=== PATIENT | female | born 1940 | race Caucasian/White ===

== ENCOUNTER 2017-02-05 19:30 | Emergency (ER) | payer OTHER, BC ==
[2017-02-05 19:35] VITALS: BP 144/71; PULSE 83; TEMP 98.1; BMI 20.1
--- NOTE | 2017-02-05 19:36 | PDOC ---
History of Present Illness - History of Present Illness Initial Comments: 02/05/17 19:45. The patient is a 76 year old female with a past medical history of dementia presents to the emergency department with complaints of right ankle pain and right wrist pain after a mechanical fall down some stairs. Denies loss of consciousness or head trauma. When the patient fell, she states she landed on her right out stretched arm. Patient's right wrist is painful with range of motion. Denies numbness or tingling in the right hand. Denies right elbow pain or shoulder pain. Denies neck pain or back pain. Patient also reports sustaining injury to her right ankle. Patient reports pain with weight bearing and range of motion in her right ankle. Denies numbness or tingling in the right foot. Denies any other joint pains in the right lower extremity. Denies hip pain or pelvis pain. PAST MEDICAL HISTORY: dementia PAST SURGICAL HISTORY: no significant history FAMILY HISTORY: no pertinant history SOCIAL HISTORY: Pt lives with family MEDICATIONS: reviewed ALLERGIES: As per nursing notes ROS General: No fevers or chills, no weakness, no weight loss HEENT: No change in vision. No sore throat,. No ear pain CardioVascular: No chest pain or shortness of breath Respiratory:No cough, or wheezing. Gastrointestinal: no nausea, vomitting, diarrhea or constipation, No rectal bleeding Genitourinary: No dysuria, hematuria, or frequency Musculoskeletal: Yes Right Ankle pain Yes Right Wrist pain Neurologic: No headache, vertigo, dizziness or loss of consciousness Psychiatric: no depression Skin: No rashes or easy bruising Endocrine: no increased thirst or abnormal weight change Allergic: no skin or latex allergy All other systems reviewed and normal Exam GENERAL: The patient is awake, alert, and fully oriented, in no acute distress. HEAD: Normal with no signs of trauma. EYES: Pupils equal, round and reactive to light, extraocular movements intact, sclera anicteric, conjunctiva clear. EXTREMITIES: Right Ankle: no swelling or ecchymosis of ankle or foot. Mild tenderness to palpation anterior ankle. No tender to palpation of the lateral malleolus or base of the 5th Metatarsal. Neurovascular intact Right wrist: There is ecchymosis and swelling of the right wrist with question deformity. Neurovascular intact Remainder of the extremities show normal range of motion, no edema. NEUROLOGICAL: Normal speech PSYCH: Normal mood, normal affect. SKIN: Refer to extremities portion of exam, otherwise warm, Dry, normal turgor, no rashes or lesions noted. <Luis Gaxiola - Last Filed: 02/05/17 19:56> - General History Source: Patient Exam Limitations: No Limitations - History of Present Illness Initial Comments: 02/05/17 20:53 A portion of this note was documented by scribe services under my direction. I have reviewed the details of the note, within reason, and agree with the documentation. The case summary and management plan written by me. 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 Patient fell landing on her outstretched hand and twisted her foot and ankle. Patient x-ray was negative for any acute pathology of her foot or ankle however there is a distal radius fracture with deformity. Patient put in a splint of her wrist and will follow-up with the orthopedist tomorrow. Patient discharged home with her family. Patient does live in an assisted- living facility [facility] Patient referred to Dr. Love for orthopedics <Vivienne Munoz I - Last Filed: 02/05/17 20:58> - General Chief Complaint: Injury Stated Complaint: RT WRIST, RT ANKLE PAIN Time Seen by Provider: 02/05/17 19:35 Past History <Luis Gaxiola - Last Filed: 02/05/17 19:56> - Past Medical History Dementia: Yes - Psycho/Social/Smoking Cessation Hx Suicidal Ideation: No Smoking History: Never smoked Hx Alcohol Use: (social) <Vivienne Munoz I - Last Filed: 02/05/17 20:58> - Past Medical History Allergies/Adverse Reactions: Allergies Allergy/AdvReac Type Severity Reaction Status Date / Time No Known Allergies Allergy Verified 02/05/17 19:31 Home Medications: Ambulatory Orders Rivastigmine [Exelon] 1 each TD ASDIR 02/05/17 *Physical Exam - Vital Signs Last Vital Signs Temp Pulse Resp BP Pulse Ox 98.1 F 83 18 144/71 98 02/05/17 19:30 02/05/17 19:30 02/05/17 19:30 02/05/17 19:30 02/05/17 19:30 <Luis Gaxiola - Last Filed: 02/05/17 19:56> - Vital Signs Last Vital Signs Temp Pulse Resp BP Pulse Ox 98.1 F 83 18 144/71 98 02/05/17 19:30 02/05/17 19:30 02/05/17 19:30 02/05/17 19:30 02/05/17 19:30 <Vivienne Munoz I - Last Filed: 02/05/17 20:58> *DC/Admit/Observation/Transfer - Attestations Scribe Attestion: 02/05/17 19:46 Documentation prepared by Luis Gaxiola, acting as medical transport specialist for Vivienne Munoz MD <Luis Gaxiola - Last Filed: 02/05/17 19:56> - Discharge Dispostion Admit: No <Vivienne Munoz I - Last Filed: 02/05/17 20:58> Diagnosis at time of Disposition: Ankle sprain Wrist fracture Qualifiers: Encounter type: initial encounter Fracture type: closed Laterality: right Qualified Code(s): S62.101A - Fracture of unspecified carpal bone, right wrist, initial encounter for closed fracture - Discharge Dispostion Disposition: HOME Condition at time of disposition: Stable - Patient Instructions Additional Instructions: Elevate the wrist as much as possible. Tylenol or Motrin as needed for pain. Wear the wrist splint and to see the orthopedist tomorrow. Follow-up with Dr. Love if you need an orthopedist call his office at [phone] for an appointment tomorrow. You can weight-bear as tolerated on your right ankle and foot, if you're still unable to bear weight on your right foot and ankle have Dr. Lvoe or your orthopedist reevaluated tomorrow as well, Return to the emergency department immediately with ANY new, persistent or worsening symptoms. Continue any medications as previously prescribed by your physician. You should follow up with your primary doctor as soon as possible regarding today's emergency department visit. . Please make sure your doctor reviews the results of your emergency evaluation. Thank you for coming to the Emergency Department today for your care. It was a pleasure to see you today. Please note that your evaluation is INCOMPLETE until you follow-up with your doctor.
[2017-02-05] MEDS ORDERED: ACETAMINOPHEN 500 MG TABLET (FP) PO ONE (19:48)
[2017-02-05] MEDS ORDERED: ACETAMINOPHEN 325 MG TABLET (FP) ONE (20:21)
== END 2017-02-05 21:04 | disposition home or self-care (01) ==
LOC: FER 19:30
PROC: 2W3EX1Z Immobilization of Right Hand using Splint (ICD-10-PCS; principal; 2017-02-05)
DX: S62.101A Fracture of unspecified carpal bone, right wrist, initial encounter for closed fracture (principal); S93.401A Sprain of unspecified ligament of right ankle, initial encounter; W10.9XXA Fall (on) (from) unspecified stairs and steps, initial encounter; Y93.89 Activity, other specified; Y92.9 Unspecified place or not applicable
CPT/HCPCS: 73110-TC-RT; 73130-TC-RT; 73610-TC-RT; 73630-TC-RT; 99283-25

== ENCOUNTER 2020-07-02 15:47 | Inpatient (IN) | payer OTHER, BC ==
--- NOTE | 2020-07-02 16:25 | PDOC ---
History of Present Illness - General Chief Complaint: Decubitus Ulcer Stated Complaint: WOUND CARE Time Seen by Provider: 07/02/20 16:24 - History of Present Illness Initial Comments: 79 YOF h/o dementia and psychosis presents for sacral decubitus ulcer of unknown duration. Patient has profound dementia and is oriented only to person. Unable to provide history ROS: Cannot provide ROS Physical Exam: GENERAL: (+) Failure to thrive. (+) Cachectic Awake, alert. In no acute distress HEAD: (+) Temporal wasting. No signs of trauma NECK: Normal ROM, supple, no lymphadenopathy, JVD, or masses LUNGS: Breath sounds equal, clear to auscultation bilaterally. No wheezes, and no crackles HEART: Regular rate and rhythm, normal S1 and S2, no murmurs, rubs or gallops ABDOMEN: Soft, nontender, normoactive bowel sounds. No guarding, no rebound. No masses EXTREMITIES: Normal range of motion, no edema. No clubbing or cyanosis. No cords, erythema, or tenderness NEUROLOGICAL: Cranial nerves II through XII grossly intact. SKIN: (+) Multiple wounds. (+) A wound to the left forearm with granulation. (+) wound to the left elbow with skin flap and is healing. (+) LLE granulation with soft tissue to the left lateral lower leg. (+) Wound on right anterior tibia that is well healed. (+) wound on the sacrum 2cm. vertical with no purulent drainage, no surrounding erythema, no warmth. (+) wound on right upper back that is 2cm by 3cm with 8cm circumferential erythemetous underrated region dry with gangrenous center, hot to touch. Normal turgor. (+) Healing abrasion/wound on left forehead. Past History - Medical History Allergies/Adverse Reactions: Allergies Allergy/AdvReac Type Severity Reaction Status Date / Time No Known Allergies Allergy Verified 02/05/17 19:31 Home Medications: Ambulatory Orders Rivastigmine [Exelon] 1 each TD DAILY 02/05/17 Memantine HCl [Memantine HCl ER] 28 mg PO DAILY 07/02/20 Risperidone 0.5 mg PO BID 07/02/20 COPD: No Dementia: Yes HTN: Yes Psychiatric Problems: Yes (psychosis) - Reproductive History Is Patient Now?: No - Psycho-Social/Smoking History Smoking History: Smoker current status UNK Have you smoked in the past 12 months: No Information on smoking cessation initiated: No - Substance Abuse Hx (Audit-C & DAST Scrn) How often the patient has a drink containing alcohol: Never Score: In Men: 4 or > Positive; In Women: 3 or > Positive: 0 Screen Result (Pos requires Nsg. Audit-10AR): Negative In the last yr the pt used illegal drug/Rx for NonMed reason: No Score: Yes response is considered Positive: 0 Screen Result (Positive result requires Nsg. DAST-10): Negative *Physical Exam - Vital Signs Last Vital Signs Temp Pulse Resp BP Pulse Ox 99.1 F 20 L 20 152/90 100 07/02/20 15:49 07/02/20 15:49 07/02/20 15:49 07/02/20 15:49 07/02/20 15:49 ED Treatment Course - LABORATORY CBC & Chemistry Diagram: 07/03/20 05:35 07/02/20 17:35 Medical Decision Making - Medical Decision Making 79 YOF presents from alf care facility for evaluation of wounds. - Wounds on sacrum, left upper extremity, bilateral lower extremities, RU back - 4 cm wound on back with necrosis suggestive of dry gangrene; surrounding erythema appears infected - will w/u for sepsis and admit - PT signed out to night team 07/03/20 07:20 Discharge - Discharge Information Problems reviewed: Yes Clinical Impression/Diagnosis: Infected wound UTI (urinary tract infection) Qualifiers: Urinary tract infection type: site unspecified Hematuria presence: without hem aturia Qualified Code(s): N39.0 - Urinary tract infection, site not specified Condition: Guarded - Follow up/Referral - Patient Discharge Instructions - Post Discharge Activity
--- NOTE | 2020-07-02 17:21 | PDOC ---
Documentation entered by Kirsten Roman SCRIBE, acting as scribe for Demi Ding DO. Demi Ding, DO: This documentation has been prepared by the Jessie appiah Brenda, SCRIBE, under my direction and personally reviewed by me in its entirety. I confirm that the documentation accurately reflects all work, treatment, procedures, and medical decision making performed by me. Attending Attestation - Resident Resident Name: Robinson Ayala - ED Attending Attestation I have performed the following: I have examined & evaluated the patient, The case was reviewed & discussed with the resident, I agree w/resident's findings & plan, Exceptions are as noted - HPI HPI: 07/02/20 17:16 The patient is an 79 year old female with a significant PMH of dementia who presents to the emergency department from an extended care facility for evaluation of several wounds. The patient is a poor historian and did not contribute to the historian. Allergies: NKA Social history: No reported hx of tobacco use, alcohol use or illicit drug use. PCP: - Physicial Exam PE: 07/02/20 17:23 GENERAL: (+) Failure to thrive. (+) Cachectic Awake, alert. In no acute distress HEAD: (+) Temporal wasting. No signs of trauma NECK: Normal ROM, supple, no lymphadenopathy, JVD, or masses LUNGS: Breath sounds equal, clear to auscultation bilaterally. No wheezes, and no crackles HEART: Regular rate and rhythm, normal S1 and S2, no murmurs, rubs or gallops ABDOMEN: Soft, nontender, normoactive bowel sounds. No guarding, no rebound. No masses EXTREMITIES: Normal range of motion, no edema. No clubbing or cyanosis. No cords, erythema, or tenderness NEUROLOGICAL: Cranial nerves II through XII grossly intact. SKIN: (+) Multiple wounds. (+) A wound to the left forearm with granulation. (+) wound to the left elbow with skin flap and is healing. (+) LLE granulation with soft tissue to the left lateral lower leg. (+) Wound on right anterior tibia that is well healed. (+) wound on the sacrum 2cm. vertical with no purulent drainage, no surrounding erythema, no warmth. (+) wound on right upper back that is 2cm by 3cm with 8cm circumferential erythemetous underrated region dry with g angrenous center, hot to touch. Normal turgor. (+) Healing abrasion/wound on left forehead. - Medical Decision Making 07/02/20 17:17 a/p: 79yo female sent from her ECF for eval of wounds -pt with multiple wounds to LUE, b/l LE, sacrum, RU back -RUBack appears infected with surrounding erythema, induration, dry gangrene -pt warm to touch -pt with a wound to her head -will send labs, cultures, lactate, straight cath, broad spectrum abx -will need admission 07/02/20 17:49 cxr clear 07/02/20 18:32 pt with wbc 14 ua is cloudy - concerning for uti 07/02/20 18:53 ua pending hr 87 cr normal 07/02/20 19:[address] pantoja Case discussed with Dr. Tom who accepts pt to service Heart Score/ECG Review - ECG Intrepretation Comment:: 07/02/20 19:05 sinus at 85, low voltage, no acute st/t wave findings, abnl ekg Discharge - Discharge Information Problems reviewed: Yes Clinical Impression/Diagnosis: Infected wound, UTI (urinary tract infection) Condition: Guarded - Admission Yes - Follow up/Referral - Patient Discharge Instructions - Post Discharge Activity
[2020-07-02 18:08] LABS: BASO % 0.6 % (0-2.0); EOS % 0.7 % (0-4.5); HEMOGLOBIN 13.1 GM/dL (10.7-15.3); LYMPH % 8.6 % (8-40); MCHC 32.8 g/dl (32.0-36.0); MEAN CELL VOLUME 88.3 fl (80-96); MEAN PLT VOLUME 9.1 fl (7.5-11.1); MONO % 7.2 % (3.8-10.2); NEUT % 82.9 % (42.8-82.8); PLATELET COUNT 285 K/MM3 (134-434); RBC 4.53 M/mm3 (3.60-5.2); RDW 13.8 % (11.6-15.6); WHITE BLOOD COUNT 14.1 K/mm3 (4.0-10.0)
[2020-07-02 18:17] LABS: INR 0.99 (0.83-1.09); PROTHROMBIN TIME (PATIENT) 11.7 SEC (9.7-13.0)
[2020-07-02 18:19] LABS: ACTIVATED PTT 27.8 SECONDS (25.2-36.5)
[2020-07-02 18:32] LABS: ALBUMIN 2.6 g/dl (3.4-5.0); BILIRUBIN,TOTAL 0.7 mg/dL (0.2-1); BLOOD UREA NITROGEN 6.8 mg/dL (7-18); CALCIUM 8.8 mg/dL (8.5-10.1); CREATININE 0.5 mg/dL (0.55-1.3); POTASSIUM 3.9 mmol/L (3.5-5.1); TOT PROT 6.1 g/dl (6.4-8.2)
[2020-07-02] MEDS ORDERED: VANCOMYCIN 1 GM in D5W (PRE-DOCKED) 1,000 MG/250 ML IVPB ONE (18:53)
[2020-07-02] MEDS ORDERED: PIPERACILLIN/TAZOB 3.375 GM 3.375 GM in DEXTROSE 5%-WATER - 50 ML IVPB ONE (18:53)
[2020-07-02] MEDS ORDERED: VANCOMYCIN 1 GRAM (PRE-DOCKED) 1,000 MG/250 ML BAG IVPB ONE (18:58)
[2020-07-02] MEDS ORDERED: PIPERACILLIN/TAZOB 3.375 GM 3.375 GM/50 ML BAG IVPB ONE (18:58)
[2020-07-02] MEDS ORDERED: LACTATED RINGERS SOLUTION 1000 ML INFUS.BAG IV ONE (19:14)
[2020-07-02] MEDS ORDERED: ACETAMINOPHEN 1000 MG/100 ML VIAL (NON FORMULARY) IVPB ONE (19:14)
--- NOTE | 2020-07-02 19:22 | HP ---
Admitting History and Physical - Admission Chief Complaint: Acutely infected open wounds of multiple sites History of Present Illness: This 79 yr old w/f with PMH of dementia admitted via ER with acutely infected multiple decubiti of lower and upper extremities, sacrum and right upper back, acute UTI, urosepsis, and neutrophilic leukocytosis. 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 Cardiovascular: No: AFIB, Aneurysm, Aortic Insufficiency, Aortic Stenosis, CAD, CHF, Deep Vein Thrombosis, HTN, Hyperlipdemia, MT, Mitral Insufficiency, Mitral Stenosis, Murmur, Pulmonary Hypertension, Other Pulmonary: No: Asthma, Bronchitis, Cancer, COPD, O2 Dependent, Pneumonia, Previously Intubated, Pulmonary Embolus, Pulmonary Fibrosis, Sleep Apnea, Other Gastrointestinal: No: Ascites, Cancer, Constipation, Crohn's Disease, Diverticulitis, Diverticulosis, Esophageal Varices, Gastritis, GERD, GI Bleed, Hemorrhoids, Hiatal Hernia, Inflamatory Bowel Disease, Irritable Bowel Disease, Pancreatitis, Peptic Ulcer Disease, Ulcerative Colitis, Other Hepatobiliary: No: Cirrhosis, Cholelithiasis, Cholecystitis, Choledocholithiasis, Hepatitis A, Hepatitis B, Hepatitis C, Other Renal/: No: Renal Failure, Renal Inusuff, BPH, Cancer, Hematuria, Hemodialysis, Neurogenic Bladder, Renal Calculi, UTI, Other Reproductive: No: Ectopic , Endometriosis, Fibroids, PID, Polycystic Ovary Syndrome, Postmenopausal, Other ...: No Heme/Onc: No: Anemia, B12 Deficiency, Bleeding Disorder, Cancer, Current Chemotherapy, Current Radiation Therapy, Hemochromatosis, Hypercoaguable State, Myeloproliferative Synd, Sickle Cell Disease, Sickle Cell Trait, Thrombocytopenia, Other Infectious Disease: No: AIDS, C-Diff, Herpes Zoster, HIV, MRSA, STD's, Tuberculosis, VREF, Other Psych: No: Addictions, Anxiety, Bipolar, Depression, Panic, Psychosis, Schizophrenia, Other Musculoskeletal: No: Bursitis, Chronic low back pain, Hemiparesis, Hemiplegia, Osteoarthritis, Paraplegia, Other Rheumatology: No: Fibromyalgia, Gout, Lupus, Rheumatoid Arthritis, Sarcoidosis, Vasculitis, Other ENT: No: Allergic Rhinitis, Sinusitis, Other Endocrine: No: [place]'s Disease, Sil's Disease, Diabetes Insipidus, Diabetes Mellitus, Hyperparathyroidism, Hyperthyroidism, Hypothyroidism, Osteopenia, SIADH, Other Dermatology: No: Basal Cell, Cellulitis, Eczema, Melanoma, Psoriasis, Squamous Cell, Other - Past Surgical History Past Surgical History: Yes: None - Smoking History Smoking history: Smoker current status UNK Have you smoked in the past 12 months: No - Alcohol/Substance Use Hx Alcohol Use: (social) - Social History Usual Living Arrangement: Yes: Assisted Living Home Medications - Allergies Allergies/Adverse Reactions: Allergies Allergy/AdvReac Type Severity Reaction Status Date / Time No Known Allergies Allergy Verified 02/05/17 19:31 - Home Medications Home Medications: Ambulatory Orders Rivastigmine [Exelon] 1 each TD DAILY 02/05/17 Memantine HCl [Memantine HCl ER] 28 mg PO DAILY 07/02/20 Risperidone 0.5 mg PO BID 07/02/20 Review of Systems - Review of Systems Constitutional: reports: Weakness Eyes: reports: No Symptoms HENT: reports: No Symptoms Neck: reports: No Symptoms Cardiovascular: reports: No Symptoms Respiratory: reports: No Symptoms Gastrointestinal: reports: No Symptoms Genitourinary: reports: No Symptoms Breasts: reports: No Symptoms Reported Musculoskeletal: reports: Muscle Weakness Integumentary: reports: Wound (Extremities, sacrum, right upper back) Neurological: reports: Unsteady Gait, Weakness Endocrine: reports: No Symptoms Hematology/Lymphatic: reports: No Symptoms Psychiatric: reports: No Symptoms Physical Examination Vital Signs: Vital Signs Temperature 99.1 F 07/02/20 15:49 Pulse Rate 88 07/02/20 18:02 Respiratory Rate 18 07/02/20 18:02 Blood Pressure 152/90 07/02/20 15:49 O2 Sat by Pulse Oximetry (%) 100 07/02/20 18:02 Constitutional: Yes: Well Nourished, No Distress, Calm Eyes: Yes: Conjunctiva Clear, EOM Intact HENT: Yes: Atraumatic, Normocephalic Neck: Yes: Supple, Trachea Midline Cardiovascular: Yes: Regular Rate and Rhythm Respiratory: Yes: Regular, CTA Bilaterally Gastrointestinal: Yes: Normal Bowel Sounds, Soft ...Rectal Exam: Yes: Deferred Renal/: Yes: Incontinence Breast(s): Yes: WNL Musculoskeletal: Yes: Muscle Weakness Extremities: Yes: Other (open wounds of upper and lower extremities) Edema: No Peripheral Pulses WNL: Yes Integumentary: Yes: Pressure Ulcer (multiple decubitis of upper and lower extremities, sacrum, and right upper back) Neurological: Yes: Alert, Weakness ...Motor Strength: LUE (generalized muscle weakness of all extremities) Psychiatric: Yes: Alert Labs: CBC, BMP 07/02/20 17:35 07/02/20 17:35 Imaging - Results Chest X-ray: Report Reviewed Other: Report Reviewed (lab data reviewed) Problem List - Problems (1) Infected wound Code(s): T14.8XXA - OTHER INJURY OF UNSPECIFIED BODY REGION, INITIAL ENCOUNTER; L08.9 - LOCAL INFECTION OF THE SKIN AND SUBCUTANEOUS TISSUE, UNSP (2) UTI (urinary tract infection) Code(s): N39.0 - URINARY TRACT INFECTION, SITE NOT SPECIFIED (3) Ankle sprain Code(s): S93.409A - SPRAIN OF UNSP LIGAMENT OF UNSPECIFIED ANKLE, INIT ENCNTR (4) Wrist fracture Code(s): S62.109A - FRACTURE OF UNSP CARPAL BONE, UNSP WRIST, INIT FOR CLOS FX Qualifiers: Encounter type: initial encounter Fracture type: closed Laterality: right Qualified Code(s): S62.101A - Fracture of unspecified carpal bone, right wrist, initial encounter for closed fracture Assessment/Plan Assessment/plan: acutely infected open wounds of upper and lower extremities, sacrum, and right upper back; acute UTI, urosepsis, neutrophilic leukocytosis; IV Zosyn and Vancomycin for multiple infected decubiti, consult to ID, consult to Vascular Surgeon, physical therapy, SQ Lovenox and oral pantoprazole for DVT/GI prophylaxis.
--- NOTE | 2020-07-02 19:38 | PDOC ---
*Physical Exam - Vital Signs Last Vital Signs Temp Pulse Resp BP Pulse Ox 99.1 F 88 18 152/90 100 07/02/20 15:49 07/02/20 18:02 07/02/20 18:02 07/02/20 15:49 07/02/20 18:02 - Physical Exam 07/02/20 19:[address] Ayala. Pt admitted ED Treatment Course - LABORATORY CBC & Chemistry Diagram: 07/02/20 17:35 07/02/20 17:35 - ADDITIONAL ORDERS Additional order review: Laboratory Results 07/02/20 07/02/20 07/02/20 17:35 17:35 17:35 PT with INR INR PTT (Actin FS) Sodium 141 Potassium 3.9 Chloride 106 Carbon Dioxide 28 Anion Gap 7 L BUN 6.8 L Creatinine 0.5 L Est GFR (CKD-EPI)AfAm 105.94 Est GFR (CKD-EPI)NonAf 91.41 Random Glucose 96 Lactic Acid 1.2 Calcium 8.8 Total Bilirubin 0.7 AST 21 ALT 14 Alkaline Phosphatase 99 Troponin I 0.03 Total Protein 6.1 L Albumin 2.6 L 07/02/20 17:35 PT with INR 11.70 INR 0.99 PTT (Actin FS) 27.8 Sodium Potassium Chloride Carbon Dioxide Anion Gap BUN Creatinine Est GFR (CKD-EPI)AfAm Est GFR (CKD-EPI)NonAf Random Glucose Lactic Acid Calcium Total Bilirubin AST ALT Alkaline Phosphatase Troponin I Total Protein Albumin 07/02/20 17:35 RBC 4.53 MCV 88.3 MCHC 32.8 RDW 13.8 MPV 9.1 Neutrophils % 82.9 H Lymphocytes % 8.6 Monocytes % 7.2 Eosinophils % 0.7 Basophils % 0.6 - Medications Given in the ED: ED Medications Discontinued Medications Generic Name Dose Route Start Last Admin Trade Name Freq PRN Reason Stop Dose Admin Piperacillin Sod/Tazobactam 50 mls @ 100 mls/hr 07/02/20 18:53 07/02/20 19:10 Sod 3.375 gm/ Dextrose IVPB 07/02/20 19:22 100 mls/hr ONCE ONE Administration Protocol Vancomycin HCl 1,000 mg 07/02/20 18:53 07/02/20 19:27 Vancomycin (Pre-Docked) IVPB 07/02/20 18:54 1,000 mg ONCE ONE Administration Protocol Discharge - Discharge Information Problems reviewed: Yes Clinical Impression/Diagnosis: Infected wound UTI (urinary tract infection) Qualifiers: Urinary tract infection type: site unspecified Hematuria presence: without hematuria Qualified Code(s): N39.0 - Urinary tract infection, site not specified Condition: Guarded - Admission Yes - Follow up/Referral - Patient Discharge Instructions - Post Discharge Activity
[2020-07-02] MEDS ORDERED: ACETAMINOPHEN INJECTION 100 ML IVPB ONE (19:46)
[2020-07-02 20:13] LABS: URINE COLOR YELLOW
[2020-07-02 20:15] LABS: PH,URINE 6.5 (5.0-8.0); URINE APPEARANCE TURBID; URINE BILIRUBIN NEGATIVE (NEGATIVE); URINE GLUCOSE (UA) NEGATIVE (NEGATIVE); URINE KETONE NEGATIVE (NEGATIVE); URINE LEUK ESTERASE LARGE (NEGATIVE); URINE NITRITE POSITIVE (NEGATIVE); URINE PROTEIN 100 (NEGATIVE); URINE RBC 336.4 /uL (0-23.9); URINE UROBILINOGEN 0.2 mg/dL (0.2-1.0); URINE WBC 41602.5 /uL (0-25.8)
[2020-07-02 20:16] LABS: EPI CELLS 167.4 /uL (0-25.1); HYALINE CASTS 265.33 /uL (0-3.1); URINE BACTERIA 16384.7 /uL (0-1359); YEAST NEGATIVE (NEGATIVE)
[2020-07-02] MEDS ORDERED: PANTOPRAZOLE 40 MG TABLET ONE (20:42)
[2020-07-02] MEDS ORDERED: risperiDONE 0.5 MG TABLET ONE (20:43)
[2020-07-02] MEDS ORDERED: ENOXAPARIN NA (PORCINE) 40 MG/0.4 ML DISP.SYRIN SQ ONE (20:43)
[2020-07-02] MEDS: ENOXAPARIN NA (PORCINE) 40 MG/0.4 ML DISP.SYRIN SQ SCH (20:53)
[2020-07-02] MEDS: PANTOPRAZOLE 40 MG TABLET PO SCH ×2 (20:54→21:03)
[2020-07-02] MEDS: risperiDONE 0.5 MG TABLET PO SCH (21:03)
[2020-07-02] MEDS: MEMANTINE HCL 10 MG TABLET (FP) PO SCH (23:19)
[2020-07-03 06:11] LABS: BASO % 0.7 % (0-2.0); EOS % 0.9 % (0-4.5); HEMATOCRIT 39.8 % (32.4-45.2); HEMOGLOBIN 12.7 GM/dL (10.7-15.3); LYMPH % 14.2 % (8-40); MCH 28.5 pg (25.7-33.7); MCHC 32.1 g/dl (32.0-36.0); MEAN PLT VOLUME 8.6 fl (7.5-11.1); MONO % 7.7 % (3.8-10.2); NEUT % 76.5 % (42.8-82.8); PLATELET COUNT 256 K/MM3 (134-434); RBC 4.47 M/mm3 (3.60-5.2); RDW 13.9 % (11.6-15.6); WHITE BLOOD COUNT 11.6 K/mm3 (4.0-10.0)
--- NOTE | 2020-07-03 08:46 | PN ---
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, Physician Chief Complaint: Patient seen and examined at the bedside, no acute events from last night, afebrile. History of Present Illness: This 79 yr old w/f with PMH of dementia admitted via ER with an acutely infected multiple open wounds of upper and lower extremities, sacrum, and right upper back, UTI, urosepsis, and neutrophilic leukocytosis. - Current Medication List Current Medications: Active Medications Enoxaparin Sodium (Lovenox -) 40 mg SQ DAILY ON LICENSE OF [facility] Last Admin: 07/02/20 20:53 Dose: 40 mg Documented by: Memantine (Namenda -) 10 mg PO BID ON LICENSE OF [facility] Last Admin: 07/02/20 23:19 Dose: Not Given Documented by: Pantoprazole Sodium (Protonix -) 40 mg PO DAILY ON LICENSE OF [facility] Last Admin: 07/02/20 21:03 Dose: Not Given Documented by: Risperidone (Risperdal -) 0.5 mg PO BID ON LICENSE OF [facility] Last Admin: 07/02/20 21:03 Dose: Not Given Documented by: Rivastigmine (Exelon Patch 9.5 Mg/24 Hours -) 1 each TD Q24H ON LICENSE OF [facility] - Objective Vital Signs: Vital Signs Temperature 98.7 F 07/03/20 06:20 Pulse Rate 72 07/03/20 06:20 Respiratory Rate 16 07/03/20 06:20 Blood Pressure 147/69 07/03/20 06:20 O2 Sat by Pulse Oximetry (%) 97 07/03/20 06:20 Constitutional: Yes: Well Nourished, No Distress, Calm Eyes: Yes: Conjunctiva Clear, EOM Intact HENT: Yes: Atraumatic, Normocephalic Neck: Yes: Supple, Trachea Midline Cardiovascular: Yes: Regular Rate and Rhythm Respiratory: Yes: Regular, CTA Bilaterally Gastrointestinal: Yes: Normal Bowel Sounds, Soft ...Rectal Exam: Yes: Deferred Genitourinary: Yes: Incontinence, Other (pyuria) Breast(s): Yes: WNL Musculoskeletal: Yes: Muscle Weakness Extremities: Yes: WNL Edema: No Peripheral Pulses WNL: Yes Integumentary: Yes: Pressure Ulcer (acutely infected multiple decubiti of lower extr, sacrum and right upper back) Neurological: Yes: Alert, Unsteady Gait, Weakness ...Motor Strength: LUE (generalized muscle weakness of all extremities) Psychiatric: Yes: Alert Labs: CBC, BMP 07/03/20 05:35 07/02/20 17:35 INR, PTT INR 0.99 (0.83-1.09) 07/02/20 17:35 - ....Imaging Other: Report Reviewed (lab data reviewed) Problem List - Problems (1) Infected wound Code(s): T14.8XXA - OTHER INJURY OF UNSPECIFIED BODY REGION, INITIAL ENCOUNTER; L08.9 - LOCAL INFECTION OF THE SKIN AND SUBCUTANEOUS TISSUE, UNSP (2) UTI (urinary tract infection) Code(s): N39.0 - URINARY TRACT INFECTION, SITE NOT SPECIFIED Qualifiers: Urinary tract infection type: site unspecified Hematuria presence: without hematuria Qualified Code(s): N39.0 - Urinary tract infection, site not specified (3) Ankle sprain Code(s): S93.409A - SPRAIN OF UNSP LIGAMENT OF UNSPECIFIED ANKLE, INIT ENCNTR (4) Wrist fracture Code(s): S62.109A - FRACTURE OF UNSP CARPAL BONE, UNSP WRIST, INIT FOR CLOS FX Qualifiers: Encounter type: initial encounter Fracture type: closed Laterality: right Qualified Code(s): S62.101A - Fracture of unspecified carpal bone, right wrist, initial encounter for closed fracture Assessment/Plan Assessment/plan: acutely infected open wounds of lower extremities sacrum and right upper back, dementia, mildly elevated lactic acid; IV Zosyn and Vancomycin for acutely infected open wounds and UTI; IV fluids for hydration; physical therapy assistant apy for deconditioning; SQ Lovenox and oral pantoprazole for DVT/GI prophylaxis; rivastigmine for dementia; memantine for memory loss; consult to Vascular Surgeon and ID pending.
--- NOTE | 2020-07-03 09:18 | EKG ---
Test Reason : Blood Pressure : / mmHG Vent. Rate : 085 BPM Atrial Rate : 085 BPM P-R Int : 178 ms QRS Dur : 082 ms QT Int : 374 ms P-R-T Axes : 069 -11 048 degrees QTc Int : 445 ms SINUS RHYTHM WITH FUSION COMPLEXES LOW VOLTAGE QRS NONSPECIFIC ST ABNORMALITY ABNORMAL ECG NO PREVIOUS ECGS AVAILABLE Confirmed by MARC HODGES MD ([id number]) on 07/03/2020 9:18:44 AM Referred By: Confirmed By:MARC HODGES MD
[2020-07-03] MEDS ORDERED: PANTOPRAZOLE 40 MG TABLET ONE (10:26)
[2020-07-03] MEDS ORDERED: risperiDONE 0.5 MG TABLET ONE (10:27)
[2020-07-03] MEDS ORDERED: ENOXAPARIN NA (PORCINE) 40 MG/0.4 ML DISP.SYRIN SQ ONE (10:27)
[2020-07-03] MEDS: D5-1/2NS+20 MEQ KCL - 20 MEQ/1,000 ML INFUS.BAG IV SCH (10:47)
[2020-07-03] MEDS: ENOXAPARIN NA (PORCINE) 40 MG/0.4 ML DISP.SYRIN SQ SCH (10:48)
[2020-07-03] MEDS: MEMANTINE HCL 10 MG TABLET (FP) PO SCH (12:00)
[2020-07-03] MEDS: PANTOPRAZOLE 40 MG TABLET PO SCH (12:01)
[2020-07-03] MEDS: risperiDONE 0.5 MG TABLET PO SCH (12:01)
--- NOTE | 2020-07-03 13:01 | CONSULT ---
Admitting History and Physical - Admission History of Present Illness: 79 yr old w/f with PMH of dementia admitted via ER with an acutely infected multiple open wounds of upper and lower extremities, sacrum, and right upper back, UTI, urosepsis, and neutrophilic leukocytosis. Puree/thin liquid ordered. Selected Entries 07/03/20 07/03/20 07/03/20 00:41 02:00 06:20 Temperature 98.6 F 98.7 F Pulse Rate Pulse Rate [ 65 72 Apical] Respiratory Normal Normal Depth Respiratory Non-Labored Non-Labored Non-Labored Effort Blood Pressure Blood Pressure 140/62 147/69 [Right Arm] O2 Sat by Pulse 96 97 Oximetry (%) Oxygen Delivery Room Air Room Air Room Air Method 07/03/20 09:00 Temperature 97.7 F Pulse Rate 70 Pulse Rate [ Apical] Respiratory Normal Depth Respiratory Non-Labored Effort Blood Pressure 121/69 Blood Pressure [Right Arm] O2 Sat by Pulse 95 Oximetry (%) Oxygen Delivery Room Air Method Laboratory Tests 07/02/20 07/03/20 17:35 05:35 WBC 14.1 H 11.6 H Laboratory Tests 07/02/20 17:30 COVID-19 ([facility]) Pending full code CXR (-) Pt was on reg diet/thin liquids at [facility] and ordered initially here in ED. Nursing downgraded pt to Puree/thin Limitations to Obtaining History: Clinical Condition, Dementia - Past Medical History [employer]: Yes: Dementia Cardiovascular: No: AFIB, Aneurysm, Aortic Insufficiency, Aortic Stenosis, CAD, CHF, Deep Vein Thrombosis, HTN, Hyperlipdemia, MT, Mitral Insufficiency, Mitral Stenosis, Murmur, Pulmonary Hypertension, Other Pulmonary: No: Asthma, Bronchitis, Cancer, COPD, O2 Dependent, Pneumonia, Previously Intubated, Pulmonary Embolus, Pulmonary Fibrosis, Sleep Apnea, Other Gastrointestinal: No: Ascites, Cancer, Constipation, Crohn's Disease, Diverticulitis, Diverticulosis, Esophageal Varices, Gastritis, GERD, GI Bleed, Hemorrhoids, Hiatal Hernia, Inflamatory Bowel Disease, Irritable Bowel Disease, Pancreatitis, Peptic Ulcer Disease, Ulcerative Colitis, Other Hepatobiliary: No: Cirrhosis, Cholelithiasis, Cholecystitis, Choledocholithiasis, Hepatitis A, Hepatitis B, Hepatitis C, Other Renal/: No: Renal Failure, Renal Inusuff, BPH, Cancer, Hematuria, Hemodialysis, Neurogenic Bladder, Renal Calculi, UTI, Other ...: No Heme/Onc: No: Anemia, B12 Deficiency, Bleeding Disorder, Cancer, Current Chemotherapy, Current Radiation Therapy, Hemochromatosis, Hypercoaguable State, Myeloproliferative Synd, Sickle Cell Disease, Sickle Cell Trait, Thrombocytopenia, Other Infectious Disease: No: AIDS, C-Diff, Herpes Zoster, HIV, MRSA, STD's, Tuberculosis, VREF, Other Psych: No: Addictions, Anxiety, Bipolar, Depression, Panic, Psychosis, Schizophrenia, Other Musculoskeletal: No: Bursitis, Chronic low back pain, Hemiparesis, Hemiplegia, Osteoarthritis, Paraplegia, Other Rheumatology: No: Fibromyalgia, Gout, Lupus, Rheumatoid Arthritis, Sarcoidosis, Vasculitis, Other ENT: No: Allergic Rhinitis, Sinusitis, Other Endocrine: No: Da's Disease, [place]'s Disease, Diabetes Insipidus, Diabetes Mellitus, Hyperparathyroidism, Hyperthyroidism, Hypothyroidism, Osteopenia, SIADH, Other Dermatology: No: Basal Cell, Cellulitis, Eczema, Melanoma, Psoriasis, Squamous Cell, Other - Past Surgical History Past Surgical History: Yes: None - Smoking History Smoking history: Smoker current status UNK Have you smoked in the past 12 months: No - Alcohol/Substance Use Hx Alcohol Use: (social) History - Admission Reason For Visit: URINARY TRACT INFECTION LOCAL INFECTION OF WOUND - Diagnostics X-ray: Report Reviewed - General Mental Status: Forgetful, Vague, Confused, Flat Affect Attention: Mild Impairment Ability to Follow Directions: Fair Head/Neck Control: Fair - Hearing Hearing: Functional Speech Evaluation - Communication Primary Language: CENTRAL AFRICAN Communication: Yes: Simple Responses (language of confusion, anomia, incomplete, hesitant) - Speech Production Intelligibility: Yes: WNL - Speech Characteristics Voice Loudness: Normal Voice Pitch: Yes: Normal Voice Phonatory-based Quality: Yes: Normal Speech Pattern: Impaired Speech Clarity: < 100% Nasal Resonance: Normal Articulation: Yes: Precise - Language/Auditory Comprehension Observation: Yes/No Confusion: Yes (suspected.) - Language/Verbal Expression Aphasia: Yes: Anomia, Impaired Repetition, Neologisms, Apraxia Able to Respond to Simple Queries: Yes: Moderately Impaired Functional Communication Status: Yes: Moderately Impaired - Swallow Evaluation/Bedside Assessment Current Nutritional Intake: Dysphagia Pureed, Thin Liquids Oral Secretions: Yes: WFL Facial Symmetry at Rest: Symmetrical Laryngeal Movement: Able to Palpate, Labored,delay initiation Rate of Intake: Slow/Holding Bolus Size: Small Labial Seal: WFL Chewing: Impaired Oral Prep Time: Increased A-P Transit: Impaired Timing of Swallow: Delayed Coughing/Throat Clear: No Change in Voice: No Recommendations - Speech Evaluation, Impression/Plan Impression: Confusion. Araxia. Oral holding. Pt with increased nutritional needs for healing multiple wounds - Disposition Discharge to: Senior Care Facility, To be Determined - Dysphagia Impressions/Plan Swallowing Skills: Impaired Dysphagia Impressions: Moderate Impairment *Silent aspiration: cannot be R/O at bedside Dysphagia Treatment Plan: Small Bites, Chin Tuck/Down, Trial Feedings, Facilitative Feeding (feed slowly. tell pt "open mouth,close mouth, swallow"), Safe Rate, 1/2 tsp. at a time, Elevate HOB during feed Recommendations: Other (RD consult. Prosource?) - Recommendations Diet Consistency: Dysphagia Pureed Medication Administration: Crushed with applesauce Liquids: Thin Liquids (if cough, downgrade to nectar, 2 rani HN) Supplement: Ensure, Magic Cup, Ensure Pudding
--- NOTE | 2020-07-03 13:48 | PN ---
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 (short form) - Note 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: ID consult dictated imp/reccd 79 yo female with dementia admitted from assisted living with multiple pressure ulcers leukocytosis pyuria doubt ulcers are infected cefazolin surgery to evaluate ulcers - needs offloading f/u cultures Problem List - Problems (1) Leukocytosis Code(s): D72.829 - ELEVATED WHITE BLOOD CELL COUNT, UNSPECIFIED (2) Pyuria Code(s): R82.81 - PYURIA
[2020-07-03] MEDS ORDERED: CEFAZOLIN 1 GM/D5W 1 GM/50 ML BAG ONE ×2 (15:08→17:42)
[2020-07-03] MEDS: CEFAZOLIN 1 GM/D5W 1 GM/50 ML BAG IVPB SCH ×2 (15:11→17:44)
[2020-07-03] MEDS: RIVASTIGMINE 9.5 MG/24 HOURS TRANSDERMAL PATCH TD SCH (17:24)
--- NOTE | 2020-07-03 20:16 | CONS ---
INFECTIOUS DISEASE CONSULTATION DATE OF CONSULTATION: DATE OF DICTATION: 07/03/2020 This is an 79-year-old woman with a history of dementia. She is admitted from the assisted [facility] for multiple pressure ulcers. Apparently, family has not been able to see her due to the COVID pandemic, and she was noted to have multiple ulcers. It is unclear how good a historian she is. She reports that she does ambulate with a walker, but I suspect she may have very limited ambulation. PAST MEDICAL HISTORY: Notable for dementia. ALLERGIES: She has no known drug allergies. MEDICATIONS: She takes Exelon, memantine, and risperidone at the assisted [facility]. SOCIAL HISTORY: She lives at the [facility] with social alcohol use. Smoking history is not known. REVIEW OF SYSTEMS: Notable for weakness. PHYSICAL EXAMINATION: General: She is a very thin woman. She weighs 49 kg. Vital Signs: She is afebrile; temperature is 97.7. Pulse is 70. Blood pressure 121/69. Respiratory rate 16. She is saturating 95% on room air. HEENT: She is normocephalic. Her eyes are anicteric. Lungs: Clear to auscultation. Heart: Regular rate and rhythm. Abdomen: Soft, nontender. Extremities: Without edema. Skin: A limited exam was done in conjunction with the wound care nurses. She has evidence of a left heel pressure ulcer without any drainage or purulence or erythema. She has a small wound on her left elbow that is clean, small ulcer. She has a large pressure ulcer on her left upper back. There is probably an 8 x 5 cm eschar, again without erythema or purulence or odor. She has a stage 1-2, tiny sacral ulcer as well. LABORATORY DATA: Labs are notable for a white count on admission of 14.1, today 11.6; hemoglobin 12.7; platelets are 256. BUN is 6.8 and creatinine 0.5. Liver function tests are normal. Her lactic acid was 2.1. Urinalysis showed large leukocyte esterase with 41,000 white cells, and her COVID PCR is pending. Blood and urine cultures are pending. Chest x-ray was noted to show no acute chest pathology. In summary, this is an 79-year-old woman with dementia, admitted with leukocytosis, pyuria. I doubt her ulcers are infected. She has multiple pressure ulcers. Treat her with cefazolin for the UTI. Surgery to evaluate her ulcers; some of which look like they need off-loading and some local treatment. Would follow up her cultures. Further recommendations to follow. NATE SHIPLEY M.D. [place]/[id number]
[2020-07-04] MEDS: risperiDONE 0.5 MG TABLET PO SCH ×3 (00:35→23:10)
[2020-07-04] MEDS: MEMANTINE HCL 10 MG TABLET (FP) PO SCH ×3 (00:35→22:03)
[2020-07-04] MEDS: CEFAZOLIN 1 GM/D5W 1 GM/50 ML BAG IVPB SCH ×3 (01:56→17:15)
[2020-07-04 09:11] LABS: BASO % 0.5 % (0-2.0); EOS % 0.7 % (0-4.5); HEMATOCRIT 37.8 % (32.4-45.2); HEMOGLOBIN 12.3 GM/dL (10.7-15.3); LYMPH % 10.8 % (8-40); MCH 28.6 pg (25.7-33.7); MCHC 32.5 g/dl (32.0-36.0); MEAN CELL VOLUME 88.2 fl (80-96); MEAN PLT VOLUME 8.6 fl (7.5-11.1); PLATELET COUNT 280 K/MM3 (134-434); RBC 4.29 M/mm3 (3.60-5.2); RDW 13.8 % (11.6-15.6); WHITE BLOOD COUNT 11.3 K/mm3 (4.0-10.0)
[2020-07-04 10:00] LABS: ALBUMIN 2.4 g/dl (3.4-5.0); BILIRUBIN,TOTAL 0.8 mg/dL (0.2-1); BLOOD UREA NITROGEN 5.4 mg/dL (7-18); CALCIUM 8.8 mg/dL (8.5-10.1); CREATININE 0.5 mg/dL (0.55-1.3); POTASSIUM 3.8 mmol/L (3.5-5.1); TOT PROT 5.5 g/dl (6.4-8.2)
[2020-07-04] MEDS ORDERED: PT OWN MED DRAWER 7, Y5N ONE ×2 (10:02→21:58)
[2020-07-04] MEDS: ENOXAPARIN NA (PORCINE) 40 MG/0.4 ML DISP.SYRIN SQ SCH (10:11)
[2020-07-04] MEDS: RIVASTIGMINE 9.5 MG/24 HOURS TRANSDERMAL PATCH TD SCH (10:13)
[2020-07-04] MEDS: PANTOPRAZOLE 40 MG TABLET PO SCH (10:16)
[2020-07-04] MEDS: D5-1/2NS+20 MEQ KCL - 20 MEQ/1,000 ML INFUS.BAG IV SCH ×2 (10:16→23:14)
--- NOTE | 2020-07-04 12:19 | PN ---
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, Physician Chief Complaint: Patient seen and examined at the bedside, no acute events from last night, afebrile, oxygen saturation 98% on room air. History of Present Illness: This 79 yr old w/f with PMH of dementia admitted via ER with acutely infected multiple decubiiti of lower extremities, sacrum, and right upper back and oropharyngeal dysphagia. - Current Medication List Current Medications: Active Medications Enoxaparin Sodium (Lovenox -) 40 mg SQ DAILY [facility] Last Admin: 07/04/20 10:11 Dose: 40 mg Documented by: Potassium Chloride/Dextrose/Sod Cl (D5-1/2ns+20 Meq Kcl -) 20 meq in 1,000 mls @ 42 mls/hr IV ASDIR [facility] Last Admin: 07/04/20 10:16 Dose: Not Given Documented by: Cefazolin Sodium (Ancef 1 Gm Premixed Ivpb -) 1 gm in 50 mls @ 100 mls/hr IVPB Q8H-IV [facility] Last Admin: 07/04/20 10:09 Dose: 100 mls/hr Documented by: Memantine (Namenda -) 10 mg PO BID [facility] Last Admin: 07/04/20 10:16 Dose: 10 mg Documented by: Pantoprazole Sodium (Protonix -) 40 mg PO DAILY [facility] Last Admin: 07/04/20 10:16 Dose: 40 mg Documented by: Risperidone (Risperdal -) 0.5 mg PO BID [facility] Last Admin: 07/04/20 10:16 Dose: 0.5 mg Documented by: Rivastigmine (Exelon Patch 9.5 Mg/24 Hours -) 1 each TD Q24H [facility] Last Admin: 07/04/20 10:13 Dose: 1 each Documented by: - Objective Vital Signs: Vital Signs Temperature 98.7 F 07/04/20 06:00 Pulse Rate 73 07/04/20 06:00 Respiratory Rate 18 07/04/20 01:32 Blood Pressure 120/61 07/04/20 06:00 O2 Sat by Pulse Oximetry (%) 98 07/04/20 01:32 Constitutional: Yes: No Distress, Calm, Cachectic Eyes: Yes: Conjunctiva Clear, EOM Intact HENT: Yes: Atraumatic, Normocephalic Neck: Yes: Supple, Trachea Midline Cardiovascular: Yes: Regular Rate and Rhythm Respiratory: Yes: Regular, CTA Bilaterally Gastrointestinal: Yes: Normal Bowel Sounds, Soft ...Rectal Exam: Yes: Deferred Genitourinary: Yes: WNL Breast(s): Yes: WNL Musculoskeletal: Yes: Muscle Weakness Extremities: Yes: Other (multiple wounds of upper and lower extremities) Edema: No Peripheral Pulses WNL: Yes Integumentary: Yes: Pressure Ulcer (multiple decubiti of upper and lower extremities, sacrum and right upper back) Neurological: Yes: Alert, Unsteady Gait, Weakness ...Motor Strength: LUE (generalized muscle weakness of all extremities) Psychiatric: Yes: Alert Labs: CBC, BMP 07/04/20 08:05 07/04/20 08:05 INR, PTT INR 0.99 (0.83-1.09) 07/02/20 17:35 - ....Imaging Other: Report Reviewed (lab data reviewed) Problem List - Problems (1) Infected wound Code(s): T14.8XXA - OTHER INJURY OF UNSPECIFIED BODY REGION, INITIAL ENCOUNTER; L08.9 - LOCAL INFECTION OF THE SKIN AND SUBCUTANEOUS TISSUE, UNSP (2) UTI (urinary tract infection) Code(s): N39.0 - URINARY TRACT INFECTION, SITE NOT SPECIFIED Qualifiers: Urinary tract infection type: site unspecified Hematuria presence: without hematuria Qualified Code(s): N39.0 - Urinary tract infection, site not specified (3) Ankle sprain Code(s): S93.409A - SPRAIN OF UNSP LIGAMENT OF UNSPECIFIED ANKLE, INIT ENCNTR (4) Wrist fracture Code(s): S62.109A - FRACTURE OF UNSP CARPAL BONE, UNSP WRIST, INIT FOR CLOS FX Qualifiers: Encounter type: initial encounter Fracture type: closed Laterality: right Qualified Code(s): S62.101A - Fracture of unspecified carpal bone, right wrist, initial encounter for closed fracture Assessment/Plan Assessment/plan: acutely infected multiple decubiti of upper and lower extremities, sacrum and right upper back, lactose fermenting negative bacilli UTI, dementia, leukocytosis, moderate swallowing impairment; IV Cefazolin as per ID for infected decubiti and UTI; rivastigmine for dementia; SQ Lovenox and oral pantoprazole for DVT/GI prophylaxis; memantine for memory loss; Prosource and multivitamin as supplements; physical therapy for deconditioning.
[2020-07-04] MEDS: MULTIVITAMINS THER W-MINERALS COMBO TABLET (FP) PO SCH (14:13)
[2020-07-04 15:12] VITALS: BMI 19.1
[2020-07-04] MEDS: AMINO ACIDS/PROTEIN HYDROLYS 30 ML LIQUID.PKT PO SCH (17:15)
[2020-07-05] MEDS: CEFAZOLIN 1 GM/D5W 1 GM/50 ML BAG IVPB SCH ×3 (01:01→17:18)
[2020-07-05] MEDS ORDERED: PT OWN MED DRAWER 7, Y5N ONE ×2 (08:39→20:54)
[2020-07-05] MEDS: AMINO ACIDS/PROTEIN HYDROLYS 30 ML LIQUID.PKT PO SCH ×2 (08:42→17:18)
[2020-07-05] MEDS: RIVASTIGMINE 9.5 MG/24 HOURS TRANSDERMAL PATCH TD SCH (09:04)
[2020-07-05] MEDS: ENOXAPARIN NA (PORCINE) 40 MG/0.4 ML DISP.SYRIN SQ SCH (09:04)
[2020-07-05] MEDS: MULTIVITAMINS THER W-MINERALS COMBO TABLET (FP) PO SCH (09:05)
[2020-07-05] MEDS: risperiDONE 0.5 MG TABLET PO SCH ×3 (09:05→21:28)
[2020-07-05] MEDS: PANTOPRAZOLE 40 MG TABLET PO SCH (09:05)
[2020-07-05] MEDS: MEMANTINE HCL 10 MG TABLET (FP) PO SCH ×2 (09:05→21:28)
[2020-07-05 09:18] LABS: BASO % 1.1 % (0-2.0); EOS % 0.4 % (0-4.5); HEMATOCRIT 39.8 % (32.4-45.2); HEMOGLOBIN 13.1 GM/dL (10.7-15.3); LYMPH % 11.1 % (8-40); MCH 29.2 pg (25.7-33.7); MEAN CELL VOLUME 88.4 fl (80-96); MEAN PLT VOLUME 8.7 fl (7.5-11.1); NEUT % 80.4 % (42.8-82.8); PLATELET COUNT 298 K/MM3 (134-434); RDW 13.7 % (11.6-15.6); WHITE BLOOD COUNT 12.8 K/mm3 (4.0-10.0)
[2020-07-05 10:08] LABS: POTASSIUM 3.8 mmol/L (3.5-5.1)
[2020-07-05 10:19] LABS: ALBUMIN 2.5 g/dl (3.4-5.0); BLOOD UREA NITROGEN 9.9 mg/dL (7-18); CALCIUM 8.8 mg/dL (8.5-10.1); CREATININE 0.4 mg/dL (0.55-1.3)
[2020-07-05 11:03] LABS: TOT PROT 6.5 g/dl (6.4-8.2)
--- NOTE | 2020-07-05 12:12 | PN ---
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, Physician Chief Complaint: Patient seen and examined at the bedside, no acute events from last night, afebrile. History of Present Illness: This 79 yr old w/f with PMH of dementia admitted via ER with multiple acutely infected decubiti of lower extremities, sacrum and right upper back and an acute UTI. - Current Medication List Current Medications: Active Medications Amino Acids (Prosource No Carb Liquid Pkt) 30 ml PO BID@0800,1730 [facility] Last Admin: 07/05/20 08:42 Dose: 30 ml Documented by: Enoxaparin Sodium (Lovenox -) 40 mg SQ DAILY [facility] Last Admin: 07/05/20 09:04 Dose: 40 mg Documented by: Potassium Chloride/Dextrose/Sod Cl (D5-1/2ns+20 Meq Kcl -) 20 meq in 1,000 mls @ 42 mls/hr IV ASDIR [facility] Last Admin: 07/04/20 23:14 Dose: 42 mls/hr Documented by: Cefazolin Sodium (Ancef 1 Gm Premixed Ivpb -) 1 gm in 50 mls @ 100 mls/hr IVPB Q8H-IV [facility] Last Admin: 07/05/20 09:06 Dose: 100 mls/hr Documented by: Memantine (Namenda -) 10 mg PO BID [facility] Last Admin: 07/05/20 09:05 Dose: 10 mg Documented by: Multivitamins/Minerals (Theragran-M) 1 each PO DAILY [facility] Last Admin: 07/05/20 09:05 Dose: 1 each Documented by: Pantoprazole Sodium (Protonix -) 40 mg PO DAILY [facility] Last Admin: 07/05/20 09:05 Dose: 40 mg Documented by: Risperidone (Risperdal -) 0.5 mg PO BID [facility] Last Admin: 07/05/20 09:07 Dose: Not Given Documented by: Rivastigmine (Exelon Patch 9.5 Mg/24 Hours -) 1 each TD Q24H [facility] Last Admin: 07/05/20 09:04 Dose: 1 each Documented by: - Objective Vital Signs: Vital Signs Temperature 98.6 F 07/05/20 09:55 Pulse Rate 96 H 07/05/20 09:55 Respiratory Rate 18 07/05/20 09:55 Blood Pressure 136/72 07/05/20 09:55 O2 Sat by Pulse Oximetry (%) 95 07/05/20 09:55 Constitutional: Yes: No Distress, Calm, Thin Eyes: Yes: Conjunctiva Clear, EOM Intact HENT: Yes: Atraumatic, Normocephalic Neck: Yes: Supple, Trachea Midline Cardiovascular: Yes: Regular Rate and Rhythm Respiratory: Yes: Regular, CTA Bilaterally Gastrointestinal: Yes: Normal Bowel Sounds, Soft ...Rectal Exam: Yes: Deferred Genitourinary: Yes: Incontinence Breast(s): Yes: WNL Musculoskeletal: Yes: Muscle Weakness Extremities: Yes: WNL Edema: No Peripheral Pulses WNL: Yes Integumentary: Yes: Pressure Ulcer (Lower extremities, sacrum and right upper back) Neurological: Yes: Alert, Unsteady Gait, Weakness ...Motor Strength: LUE (generalized muscle weakness of all extremities) Psychiatric: Yes: Alert Labs: CBC, BMP 07/05/20 08:40 07/05/20 08:40 INR, PTT INR 0.99 (0.83-1.09) 07/02/20 17:35 - ....Imaging Other: Report Reviewed (lab data reviewed) Problem List - Problems (1) Infected wound Code(s): T14.8XXA - OTHER INJURY OF UNSPECIFIED BODY REGION, INITIAL ENCOUNTER; L08.9 - LOCAL INFECTION OF THE SKIN AND SUBCUTANEOUS TISSUE, UNSP (2) UTI (urinary tract infection) Code(s): N39.0 - URINARY TRACT INFECTION, SITE NOT SPECIFIED Qualifiers: Urinary tract infection type: site unspecified Hematuria presence: without hematuria Qualified Code(s): N39.0 - Urinary tract infection, site not specified (3) Ankle sprain Code(s): S93.409A - SPRAIN OF UNSP LIGAMENT OF UNSPECIFIED ANKLE, INIT ENCNTR (4) Wrist fracture Code(s): S62.109A - FRACTURE OF UNSP CARPAL BONE, UNSP WRIST, INIT FOR CLOS FX Qualifiers: Encounter type: initial encounter Fracture type: closed Laterality: right Qualified Code(s): S62.101A - Fracture of unspecified carpal bone, right wrist, initial encounter for closed fracture Assessment/Plan Assessment/plan: acutely infected multiple decubiti of lower extremities, sacrum and right upper back; acute UTI Klebsiella pneumoniae esbl; neutrophilic leukocytosis; hypoalbuminemia; IV Cefazolin as per ID for treatment of decubiti and UTI; SQ Lovenox and oral pantoprazole for DVT/GI prophylaxis; Prosource and multivitamin as supplements; Vitamins C, Vitamin A, Zinc sulfate to promote wound healing; physical therapy for deconditioning.
[2020-07-05] MEDS: ASCORBIC ACID 500 MG TABLET (FP) PO SCH ×2 (12:42→21:28)
[2020-07-05] MEDS: ZINC SULFATE 220 MG CAPSULE (FP) PO SCH (12:42)
[2020-07-05] MEDS: D5-1/2NS+20 MEQ KCL - 20 MEQ/1,000 ML INFUS.BAG IV SCH ×2 (12:43→21:26)
[2020-07-05] MEDS: VITAMIN A 10,000 UNITS (3000 MCG) CAPSULE PO SCH (14:21)
[2020-07-05] MEDS ORDERED: ACETAMINOPHEN 325 MG TABLET (FP) PO PRN (19:01)
[2020-07-06] MEDS: CEFAZOLIN 1 GM/D5W 1 GM/50 ML BAG IVPB SCH ×2 (02:44→09:57)
--- NOTE | 2020-07-06 08:35 | PN ---
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, Physician Chief Complaint: Patient seen and examined at the bedside, no acute events from last night except for fever. 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 - Current Medication List Current Medications: Active Medications Acetaminophen (Tylenol -) 650 mg PO Q4H PRN PRN Reason: FEVER (TEMP > 100.5) Last Admin: 07/05/20 19:50 Dose: 650 mg Documented by: Amino Acids (Prosource No Carb Liquid Pkt) 30 ml PO BID@0800,1730 [facility], [facility] Last Admin: 07/05/20 17:18 Dose: 30 ml Documented by: Ascorbic Acid (Vitamin C -) 500 mg PO BID [facility], [facility]1983 Last Admin: 07/05/20 21:28 Dose: 500 mg Documented by: Enoxaparin Sodium (Lovenox -) 40 mg SQ DAILY [facility], [facility]1983 Last Admin: 07/05/20 09:04 Dose: 40 mg Documented by: Potassium Chloride/Dextrose/Sod Cl (D5-1/2ns+20 Meq Kcl -) 20 meq in 1,000 mls @ 42 mls/hr IV ASDIR [facility], [facility]1983 Last Admin: 07/05/20 21:26 Dose: 42 mls/hr Documented by: Cefazolin Sodium (Ancef 1 Gm Premixed Ivpb -) 1 gm in 50 mls @ 100 mls/hr IVPB Q8H-IV [facility], [facility]1983 Last Admin: 07/06/20 02:44 Dose: 100 mls/hr Documented by: Memantine (Namenda -) 10 mg PO BID [facility], [facility] Last Admin: 07/05/20 21:28 Dose: 10 mg Documented by: Multivitamins/Minerals (Theragran-M) 1 each PO DAILY [facility], [facility] Last Admin: 07/05/20 09:05 Dose: 1 each Documented by: Pantoprazole Sodium (Protonix -) 40 mg PO DAILY [facility] Last Admin: 07/05/20 09:05 Dose: 40 mg Documented by: Risperidone (Risperdal -) 0.5 mg PO BID [facility] Last Admin: 07/05/20 21:28 Dose: 0.5 mg Documented by: Rivastigmine (Exelon Patch 9.5 Mg/24 Hours -) 1 each TD Q24H [facility], [facility] Last Admin: 07/05/20 09:04 Dose: 1 each Documented by: Vitamin A (Aquasol A -) 10,000 units PO DAILY [facility] Last Admin: 07/05/20 14:21 Dose: 10,000 units Documented by: Zinc Sulfate (Orazinc -) 220 mg PO DAILY [facility] Last Admin: 07/05/20 12:42 Dose: 220 mg Documented by: - Objective Vital Signs: Vital Signs Temperature 99 F 07/06/20 05:05 Pulse Rate 74 07/06/20 05:05 Respiratory Rate 07/06/20 05:05 Blood Pressure 142/79 07/06/20 05:05 O2 Sat by Pulse Oximetry (%) 94 L 07/06/20 05:05 Constitutional: Yes: No Distress, Calm, Thin, Other (lethargic) Eyes: Yes: Conjunctiva Clear, EOM Intact HENT: Yes: Atraumatic, Normocephalic Neck: Yes: Supple, Trachea Midline Cardiovascular: Yes: Regular Rate and Rhythm Respiratory: Yes: Regular, CTA Bilaterally Gastrointestinal: Yes: Normal Bowel Sounds, Soft ...Rectal Exam: Yes: Deferred Genitourinary: Yes: Incontinence Breast(s): Yes: WNL Musculoskeletal: Yes: Muscle Weakness Extremities: Yes: WNL Edema: No Peripheral Pulses WNL: Yes Integumentary: Yes: Pressure Ulcer (lower and upper extremities, sacrum and right upper back) Neurological: Yes: Lethargy, Unsteady Gait, Weakness ...Motor Strength: LUE (generalized muscle weakness of all extremities) Psychiatric: Yes: Other (lethargic) Labs: CBC, BMP 07/05/20 08:40 07/05/20 08:40 INR, PTT INR 0.99 (0.83-1.09) 07/02/20 17:35 - ....Imaging Other: Report Reviewed (lab data reviewed) Problem List - Problems (1) Infected wound Code(s): T14.8XXA - OTHER INJURY OF UNSPECIFIED BODY REGION, INITIAL ENCOUNTER; L08.9 - LOCAL INFECTION OF THE SKIN AND SUBCUTANEOUS TISSUE, UNSP (2) UTI (urinary tract infection) Code(s): N39.0 - URINARY TRACT INFECTION, SITE NOT SPECIFIED Qualifiers: Urinary tract infection type: site unspecified Hematuria presence: without hematuria Qualified Code(s): N39.0 - Urinary tract infection, site not specified (3) Ankle sprain Code(s): S93.409A - SPRAIN OF UNSP LIGAMENT OF UNSPECIFIED ANKLE, INIT ENCNTR (4) Wrist fracture Code(s): S62.109A - FRACTURE OF UNSP CARPAL BONE, UNSP WRIST, INIT FOR CLOS FX Qualifiers: Encounter type: initial encounter Fracture type: closed Laterality: right Qualified Code(s): S62.101A - Fracture of unspecified carpal bone, right wrist, initial encounter for closed fracture Assessment/Plan Assessment/plan: acute Klebsiella pneumonia esbl tobacco sweeper UTI, urosepsis due to UTI, rising neutrophilic leukocytosis, acutely infected multiple decubiti of lower and upper extremities, sacrum, and right upper back; IV Cefazolin for UTI; Rivastigmine for dementia; SQ Lovenox and oral pantoprazole for DVT/GI prophylaxis; memantine for memory loss; IV fluids for hydration; amino acids, vitamin c, vitamin a and zinc sulfate as supplements for promoted healing; physical therapy for deconditioning; nectar thick liquids; portable cxr to rule out aspiration pneumonia.
[2020-07-06 08:54] LABS: BASO % 0.3 % (0-2.0); EOS % 0.8 % (0-4.5); HEMATOCRIT 37.6 % (32.4-45.2); HEMOGLOBIN 12.1 GM/dL (10.7-15.3); LYMPH % 6.9 % (8-40); MCH 28.8 pg (25.7-33.7); MCHC 32.3 g/dl (32.0-36.0); MEAN CELL VOLUME 89.2 fl (80-96); MEAN PLT VOLUME 8.7 fl (7.5-11.1); MONO % 6.4 % (3.8-10.2); NEUT % 85.6 % (42.8-82.8); PLATELET COUNT 261 K/MM3 (134-434); RBC 4.22 M/mm3 (3.60-5.2); RDW 13.6 % (11.6-15.6); WHITE BLOOD COUNT 15.7 K/mm3 (4.0-10.0)
[2020-07-06 09:26] LABS: ALBUMIN 2.3 g/dl (3.4-5.0); BILIRUBIN,TOTAL 0.6 mg/dL (0.2-1); BLOOD UREA NITROGEN 11.1 mg/dL (7-18); CALCIUM 8.8 mg/dL (8.5-10.1); CREATININE 0.4 mg/dL (0.55-1.3); TOT PROT 6.5 g/dl (6.4-8.2)
[2020-07-06] MEDS ORDERED: PT OWN MED DRAWER 7, Y5N ONE (09:44)
--- NOTE | 2020-07-06 09:44 | PN ---
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: Selected Entries 07/03/20 07/04/20 07/04/20 10:00 00:31 10:10 Breakfast 0 50% Diet Tolerated Fair Eating (Feeding Minimum ) Ability Assistance Lunch Temperature Pulse Rate Blood Pressure 07/04/20 07/05/20 07/05/20 14:47 06:00 09:55 Breakfast Diet Tolerated Poor Eating (Feeding ) Ability Lunch 50% Temperature 97.9 F 98.6 F Pulse Rate 91 H 96 H Blood Pressure 146/65 136/72 07/05/20 07/05/20 07/06/20 19:14 22:00 02:00 Breakfast Diet Tolerated Eating (Feeding ) Ability Lunch Temperature 101.2 F H 100.9 F H 98.8 F Pulse Rate 113 H Blood Pressure 133/65 07/06/20 05:05 Breakfast Diet Tolerated Eating (Feeding ) Ability Lunch Temperature 99 F Pulse Rate 74 Blood Pressure 142/79 Laboratory Tests 07/03/20 07/04/20 07/05/20 05:35 08:05 08:40 WBC 11.6 H 11.3 H 12.8 H 07/06/20 08:30 WBC 15.7 H On puree/thin liquids Moist cough reported cxr (-) Please downgrade to nectar thick liquids [place] being considered. DNR/DNI
[2020-07-06] MEDS: ENOXAPARIN NA (PORCINE) 40 MG/0.4 ML DISP.SYRIN SQ SCH (09:58)
[2020-07-06] MEDS: D5-1/2NS+20 MEQ KCL - 20 MEQ/1,000 ML INFUS.BAG IV SCH (10:00)
[2020-07-06] MEDS: RIVASTIGMINE 9.5 MG/24 HOURS TRANSDERMAL PATCH TD SCH (10:00)
[2020-07-06] MEDS: AMINO ACIDS/PROTEIN HYDROLYS 30 ML LIQUID.PKT PO SCH (10:00)
[2020-07-06] MEDS: MEMANTINE HCL 10 MG TABLET (FP) PO SCH (10:01)
[2020-07-06] MEDS: ZINC SULFATE 220 MG CAPSULE (FP) PO SCH (10:01)
[2020-07-06] MEDS: ASCORBIC ACID 500 MG TABLET (FP) PO SCH (10:01)
[2020-07-06] MEDS: MULTIVITAMINS THER W-MINERALS COMBO TABLET (FP) PO SCH (10:01)
[2020-07-06] MEDS: VITAMIN A 10,000 UNITS (3000 MCG) CAPSULE PO SCH (10:01)
[2020-07-06] MEDS: risperiDONE 0.5 MG TABLET PO SCH (10:01)
[2020-07-06] MEDS: PANTOPRAZOLE 40 MG TABLET PO SCH (10:01)
--- NOTE | 2020-07-06 13:49 | PN ---
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 (short form) - Note 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: cough Vital Signs Period Temp Pulse Resp BP Sys/Wiseman Pulse Ox Last 24 Hr 98.8 F-101.2 F 74-113 18-20 133-142/65-79 94-95 cor-rrr llungs clear abd soft,nt ext no edema CBC, BMP 07/06/20 08:30 07/06/20 08:30 Microbiology 07/02/20 17:35 Blood - Peripheral Venous Blood Culture - Preliminary NO GROWTH OBTAINED AFTER 72 HOURS, INCUBATION TO CONTINUE FOR 2 DAYS. 07/02/20 17:35 Blood - Peripheral Venous Blood Culture - Preliminary NO GROWTH OBTAINED AFTER 72 HOURS, INCUBATION TO CONTINUE FOR 2 DAYS. 07/02/20 18:26 Urine - Urine - Catheterized Urine Culture - Final Klebsiella Pneumoniae - Esbl a/p fever/leukocytosis- UTI vs aspiration multiple decubiti ulcers severe dementia switch to ertapenem contact isolation overall prognosis is guarded Problem List - Problems (1) Leukocytosis Code(s): D72.829 - ELEVATED WHITE BLOOD CELL COUNT, UNSPECIFIED (2) Pyuria Code(s): R82.81 - PYURIA
[2020-07-06] MEDS ORDERED: ERTAPENEM SODIUM 1 GM in SODIUM CHLORIDE 50 ML IVPB SCH (14:30)
[2020-07-06 20:04] VITALS: BP 143/66; PULSE 96; TEMP 100
--- NOTE | 2020-07-07 04:15 | DS ---
Physical Examination Vital Signs: Vital Signs Temperature 100 F H 07/06/20 20:03 Pulse Rate 96 H 07/06/20 20:03 Respiratory Rate 18 07/06/20 20:03 Blood Pressure 143/66 07/06/20 20:03 O2 Sat by Pulse Oximetry (%) 96 07/06/20 20:03 Constitutional: Yes: No Distress, Calm Eyes: Yes: Conjunctiva Clear HENT: Yes: Atraumatic Neck: Yes: Supple, Trachea Midline Cardiovascular: Yes: Regular Rate and Rhythm Respiratory: Yes: Regular, CTA Bilaterally Gastrointestinal: Yes: Normal Bowel Sounds, Soft Renal/: Yes: Incontinence Breast(s): Yes: WNL Extremities: Yes: WNL Edema: No Peripheral Pulses WNL: Yes Integumentary: Yes: Pressure Ulcer (lower extremities, sacrum, right upper back) Neurological: Yes: Alert ...Motor Strength: LUE (generalized muscle weakness of all extremities) Psychiatric: Yes: Alert Labs: CBC, BMP 07/06/20 08:30 07/06/20 08:30 Discharge Summary Problems reviewed: Yes Reason For Visit: URINARY TRACT INFECTION LOCAL INFECTION OF WOUND Condition: Guarded - Instructions Diet, Activity, Other Instructions: Transfer to [facility] for wound care. Total time spent over 30 minutes on 07/06/2020. Disposition: NURSING HOME FACILITY - Home Medications Comprehensive Discharge Medication List: Ambulatory Orders Rivastigmine [Exelon] 1 each TD DAILY 02/05/17 Memantine HCl [Memantine HCl ER] 28 mg PO DAILY 07/02/20 Risperidone 0.5 mg PO BID 07/02/20
== END 2020-07-06 20:10 | disposition hospice, inpatient (51) | DRG 593 ==
LOC: JER 15:47 → JERBED 19:11 → J6S 07-03 23:14
PROVIDERS: ADMIT Internal Medicine; ATTEND Internal Medicine
DX: L89.150 Pressure ulcer of sacral region, unstageable (principal); R64 Cachexia; N39.0 Urinary tract infection, site not specified; Z68.1 Body mass index [BMI] 19.9 or less, adult; L89.113 Pressure ulcer of right upper back, stage 3; F03.90 Unspecified dementia, unspecified severity, without behavioral disturbance, psychotic disturbance, mood disturbance, and anxiety; F29 Unspecified psychosis not due to a substance or known physiological condition; R62.7 Adult failure to thrive; D72.829 Elevated white blood cell count, unspecified; R13.12 Dysphagia, oropharyngeal phase; B96.1 Klebsiella pneumoniae [K. pneumoniae] as the cause of diseases classified elsewhere
CPT/HCPCS: 36415; 71045-TC-FY; 80053; 81003; 82962; 83605; 84484; 85025; 85610; 85730; 87040; 87086; 87186; 93005; 93010; 99285-25; J0131; U0003